=== PATIENT | female | born 1950 | race Caucasian/White ===

== ENCOUNTER → 2021-06-02 | Outpatient (CLI) | payer OTHER, MEDICARE ==
[2021-06-02 12:29] LABS: HCT 46.5 % (34.0-46.0); HGB 15.3 gm/dL (11.4-16.0); MCH 29.8 pg (25.0-35.0); MCHC 32.8 g/dL (31.0-37.0); MCV 90.7 fL (80.0-100.0); Mean Platelet Volume 7.3; Platelet Count 317 k/uL (150-450); RBC 5.13 m/uL (3.80-5.40); RDW 14.1 % (11.5-15.5); WBC 8.2 k/uL (3.8-10.6)
[2021-06-02 12:42] LABS: Albumin 4.2 g/dL (3.5-5.0); Calcium 9.8 mg/dL (8.4-10.2); Potassium 4.8 mmol/L (3.5-5.1); Total Bilirubin 0.4 mg/dL (0.2-1.3); Total Protein 7.5 g/dL (6.3-8.2)
[2021-06-02 12:44] LABS: INR 0.9 (<1.2); Partial Thromboplastin Time 23.4 sec (22.0-30.0); Prothrombin Time 10.2 sec (9.0-12.0)
[2021-06-02 13:19] LABS: Appearance,Urine Clear (Clear); Bilirubin,Urine Negative (Negative); Blood,Urine Negative (Negative); Color,Urine Light Yellow; Glucose,Urine (UA) Negative (Negative); Ketones,Urine Negative (Negative); Leukocyte Esterase,Urine Negative (Negative); Nitrite,Urine Negative (Negative); PH, Urine 7.5 (5.0-8.0); Protein,Urine Negative (Negative); Specific Gravity,Urine 1.003 (1.001-1.035); Urobilinogen,Urine <2.0 mg/dL (<2.0)
== END | disposition home or self-care (01) ==
LOC: LABPAT 11:36
PROVIDERS: ATTEND Orthopaedic Surgery
DX: Z01.812 Encounter for preprocedural laboratory examination (principal); I49.2 Junctional premature depolarization; R94.31 Abnormal electrocardiogram [ECG] [EKG]
CPT/HCPCS: 36415; 80053; 81003; 85027; 85610; 85730; 87070; 93005

== ENCOUNTER 2021-06-26 07:34 | Day surgery (SDC) | payer OTHER, MEDICARE ==
[2021-06-23 08:55] VITALS: BMI 40.6
[~2021-06-26 07:34] MED LIST: ACETAMINOPHEN TAB 500 MG TAB PO PRN; DEXAMETHASONE SOD PHOSPHATE 4 MG/ML 1 ML VIAL IV ONE; GABAPENTIN 300 MG CAP PO PRN; LIDOCAINE 1% (10MG/ML) FOR IV START INTRADERMA PRN; MELOXICAM 7.5 MG TAB PO PRN; MIDAZOLAM 2 MG/2 ML VIAL IV PRN; ONDANSETRON 4 MG/2 ML VIAL IVP ONE; ROPIVACAINE/EPI/CLONIDINE/KET 50 ML SYRINGE MISCELLANE PRN; TRANEXAMIC ACID 1,000 MG in SODIUM CHLORIDE 0.9% 100 ML IVPB PRN; fentaNYL (PF) 50 MCG/ML 2 ML AMP IVP PRN
[2021-06-26] MEDS ORDERED: ONDANSETRON 4 MG/2 ML VIAL IVP PRN (08:43)
[2021-06-26] MEDS ORDERED: bisacodyL 10 MG SUPP RECTAL PRN (08:43)
[2021-06-26] MEDS ORDERED: MAGNESIUM HYDROXIDE 2,400 MG/10 ML CUP PO PRN (08:43)
[2021-06-26] MEDS ORDERED: HYDROmorphone 0.5 MG/0.5 ML SYRINGE IVP PRN ×2 (08:43)
[2021-06-26] MEDS ORDERED: NA PHOS,M-B/NA PHOS,DI-BA 133 ML ENEMA RECTAL PRN (08:43)
[2021-06-26] MEDS ORDERED: HYDROmorphone 0.2 MG/1 ML SYRINGE IVP PRN (08:43)
[2021-06-26] MEDS ORDERED: NALOXONE 0.4 MG/ML 1 ML VIAL IV PRN (08:43)
[2021-06-26] MEDS ORDERED: HYDROcodone/APAP 7.5-325MG 1 EACH TAB PO PRN (08:45)
[2021-06-26] MEDS: LACTATED RINGERS 1,000 ML IV SCH ×2 (08:53→16:24)
[2021-06-26 09:00] LABS: Glucose,Whole Blood 115 mg/dL (75-99)
[2021-06-26] MEDS ORDERED: TRANEXAMIC ACID 1,000 MG/10 ML VIAL ONE (09:19)
[2021-06-26] MEDS ORDERED: MIDAZOLAM 2 MG/2 ML VIAL ONE (09:19)
[2021-06-26] MEDS ORDERED: PROPOFOL 10 MG/ML 20 ML VIAL IV ONE (09:19)
[2021-06-26] MEDS ORDERED: SODIUM CHLORIDE 0.9% 100 ML BAG ONE (09:19)
[2021-06-26] MEDS ORDERED: PHENYLEPHRINE-0.9% NACL SYG 1,000 MCG/10 ML SYRINGE ONE (09:19)
[2021-06-26] MEDS ORDERED: DEXAMETHASONE SOD PHOSPHATE 4 MG/ML 1 ML VIAL ONE (09:19)
[2021-06-26] MEDS ORDERED: LIDOCAINE 1% INJ 10MG/ML (20 ML MDV) ONE (09:19)
[2021-06-26] MEDS ORDERED: ROPIVACAINE 5 MG/ML 30 ML VIAL ONE (09:19)
--- NOTE | 2021-06-26 10:44 | P.OP ---
Date of Procedure: 06/26/21 Preoperative Diagnosis: Severe osteoarthritis right knee Postoperative Diagnosis: Severe osteoarthritis right knee Procedure(s) Performed: Right total knee arthroplasty Implants: Al & Nephew Journey II CR Oxinium cruciate retaining femoral component size 3, right Al & Nephew Journey nonporous tibial baseplate size 2, right Al & Nephew Journey II, XLPE Deep Dished articular insert, size 15 mm, Size 1-2, right Al & Nephew Journey Tyesha II resurfacing patellar component, oval, 29 mm All components were cemented using Palacos R bone cement The articulation is Oxinium on polyethylene Anesthesia: spinal Surgeon: Vaughn Ardon Machine Fancy Stitcher #1: Karen Abrams Estimated Blood Loss (ml): 20 Pathology: other (Bone and cartilage) Condition: stable Disposition: PACU Indications for Procedure: After failure of conservative treatment we discussed the surgical and nonsurgical treatment options at length. Patient wishes to proceed with a total knee arthroplasty. Complications specific to this procedure were discussed at length, including but not limited to infection, bleeding, stiffness, and nerve injury. Covid-19 was also discussed at length with the patient, and they are aware of the current policies and procedures. The patient was given the option of delaying surgery, but they elect to proceed knowing these risks. Patient is aware of all these complications and informed consent was obtained Operative Findings: The operative findings are consistent with severe osteoarthritis of the right knee Description of Procedure: Patient was seen in the preoperative area and the consent was reviewed and the operative site was marked with a skin marker. The patient verified the procedure and the operative site. An adductor canal pain catheter and an iPACK block was placed by anesthesia in the preoperative area. The patient was then brought to the operating room and given preoperative antibiotics intravenously. A gram of transexamic acid was given intravenously. A spinal anesthetic was administered by the anesthesia department. A tourniquet was placed on the upper thigh and the lower extremity was prepped with chlorhexidine and draped in usual sterile fashion. A universal timeout was then performed which confirmed the patient's name, surgical site, ALLERGIES, and consent. The lower extremity was then exsanguinated and tourniquet was inflated to 250 mmHg. A standard anterior midline approach to the knee was performed. The skin and subcutaneous tissue were sharply dissected down to the patellar tendon. A medial parapatellar arthrotomy was then performed. The knee was then extended, the patellar was everted, and the knee was again flexed. The infra-patellar fat pad was removed in order to enhance exposure. The anterior horns of both menisci were excised, and a release was performed to the posterior medial aspect of the knee. On gross visual inspection, there was complete loss of articular cartilage in the medial and patellofemoral joint spaces. There was also significant cartilage damage in the lateral compartment. There were multiple periarticular osteophytes globally about the knee which were then removed with a Ronguer. The femoral canal was then opened with the 9.5 mm intramedullary drill. The 8 mm intramedullary genet was then inserted into the femoral canal with the distal femoral cutting guide set for 5 of valgus. The distal femoral cutting block was then pinned in place. The intramedullary genet was then removed, and the distal femur was then cut. The cutting block was then removed and the cut was checked for symmetry. The resected bone was then measured to confirm the appropriate distal femoral resection. Next, the sizing guide was then placed and set for 3 external rotation based off of the epicondylar axis and Whitesides line. Pins were then placed and the drill holes, and the femur was sized with the sizing stylus. The pins were then removed, and the sizing guide was then removed. The spikes of the femoral block was then placed into the predrilled holes, and malleted into place. Two 45 mm pins were then placed into the fixation holes on the cutting block. An sammy wing was then used to ensure there would be no notching with the anterior cut. The anterior condyles were cut without notching. The anterior chord cut was then performed, followed by the posterior cut, posterior chamfer cut, and the anterior chamfer cut. The collateral ligaments were protected during the entire process. The cutting block was then removed. Any remaining bone and osteophytes were removed from the femur with a Rominger. The femoral canal was plugged with autologous bone. Attention was then directed to the tibia. The remaining ACL was removed with a Ronguer, and the tibia was then gently subluxed forward with a large bent knee retractor. Any remaining menisci were excised. The posterior lateral corner was cauterized in order to coagulate the lateral geniculate artery. The extra medullary tibial cutting guide was then placed, set for the appropriate rotation, slope, and depth of resection. The proximal tibia cutting guide was then pinned in place. Proximal tibia was then cut and sized. The femoral trial was placed. A narrow saw blade was then used to remove the anterior intracondylar femoral bone. The CR notch trial was then placed. The tibial trial was placed with the appropriate-sized insert. The knee was able to fully extend and flex to 130 and was stable throughout all range of motion. The knee was then extended and the patella was everted. Patella was then measured, and then using an osteotomy guide, the patella was cut at the appropriate level. The patella was then measured and drilled and the patella trial was then placed. The knee was then taken through range of motion with the patella trial and the patella tracked normally using the no thumbs technique.. The knee was then extended patella trial was then removed and the patella was everted. Knee was then flexed and lug holes were drilled through the femoral trial and the femoral trial was then removed. The tibial was then re-exposed, and the tibial broach guide was then pinned in place after it was set for the appropriate rotation to allow for the most coverage without overhang. The tibia was then reamed and broached. The cut surfaces of bone were then irrigated with pulsatile lavage. The knee was irrigated with Irrisept solution. The components were then opened, the cement was mixed, and the components were then cemented in place. The cement was allowed to harden with the knee in full extension. After the cemented hardened. The tourniquet was released, and hemostasis was obtained. A second gram of transexamic acid was given intravenously. The knee was again irrigated. The knee was again taken through range of motion and found to be stable throughout all range of motion of 0-130, and the patella tracked normally. The fascia was then closed with 0 Vicryl followed by #2 strata fix suture. The subcutaneous tissue was closed with 3-0 Vicryl and 3-0 strata fix. Exofin glue was used for the skin and placed with the knee in flexion. After the glue had dried, and Optafoam silver impregnated dressing was applied. The patient was then transferred to recovery room in stable condition. The chef assistant KADEN Akhtar was required due the complexity surgery and the need for a skilled studio assistant. She assisted in positioning, draping, retraction, and closure of the wound.
[2021-06-26] MEDS ORDERED: ROPIVACAINE 0.2%-NS ON-Q PUMP 1,090 MG, EMPTY PAIN BALL 1 EACH MISCELLANE PRN (11:11)
[2021-06-26 11:37] LABS: Glucose,Whole Blood 122 mg/dL (75-99)
[2021-06-26] MEDS ORDERED: HYDROmorphone 0.5 MG/0.5 ML SYRINGE IVP ONE ×2 (11:47→11:56)
--- NOTE | 2021-06-26 12:12 | XR ---
EXAMINATION TYPE: XR knee limited RT DATE OF EXAM: 06/26/2021 COMPARISON: NONE HISTORY: 71-year-old female evaluation for postoperative abnormality in alignment TECHNIQUE: 2 views FINDINGS: Images show placement of right total knee arthroplasty. Both distal femoral and proximal tibial compo nents of the prosthesis are well seated without periprosthetic fracture. Alignment grossly anatomic. Scattered soft tissue air with anterior soft tissue swelling as well as intra-articular air related t o recent operation. IMPRESSION: Uncomplicated postoperative appearance right total knee arthroplasty.
[2021-06-26] MEDS ORDERED: MECLIZINE 25 MG TAB PO PRN (12:35)
--- NOTE | 2021-06-26 12:43 | P.CONS ---
History of Present Illness - History of Present Illness Patient is a pleasant 71-year-old the female admitted for elective right knee arthroplasty patient subsequently underwent surgery patient is recommending a procedure. Medicine was consulted for management of hypertension. Patient is on amlodipine and then as a peripheral very high-dose. Patient blood pressure is fairly stable at this time. Patient was having some nausea denied any pain in the right knee patient pain is around 3/10 in severity patient has an adductor canal catheter for pain management. REVIEW OF SYSTEMS: CONSTITUTIONAL: No fever, no malaise, no fatigue. HEENT: No recent visual problems or hearing problems. Denied any sore throat. CARDIOVASCULAR: No chest pain, orthopnea, PND, no palpitations, no syncope. PULMONARY: No shortness of breath, no cough, no hemoptysis. GASTROINTESTINAL: No diarrhea, no vomiting, no abdominal pain. NEUROLOGICAL: No headaches, no weakness, no numbness. HEMATOLOGICAL: Denies any bleeding or petechiae. GENITOURINARY: Denies any burning micturition, frequency, or urgency. MUSCULOSKELETAL/RHEUMATOLOGICAL: Denies any joint pain, swelling, or any muscle pain. ENDOCRINE: Denies any polyuria or polydipsia. The rest of the 14-point review of systems is negative. PHYSICAL EXAMINATION: GENERAL: The patient is alert and oriented x3, not in any acute distress. Well developed, well nourished. HEENT: Pupils are round and equally reacting to light. EOMI. No scleral icterus. No conjunctival pallor. Normocephalic, atraumatic. No pharyngeal erythema. No thyromegaly. CARDIOVASCULAR: S1 and S2 present. No murmurs, rubs, or gallops. PULMONARY: Chest is clear to auscultation, no wheezing or crackles. ABDOMEN: Soft, nontender, nondistended, normoactive bowel sounds. No palpable organomegaly. MUSCULOSKELETAL: Deferred to orthopedic surgery EXTREMITIES: No cyanosis, clubbing, or pedal edema. NEUROLOGICAL: Gross neurological examination did not reveal any focal deficits. SKIN: No rashes. Assessment and plan -Right knee arthroplasty: Patient is in aspirin 325 twice a day for DVT prophylaxis. Patient pain is well controlled at this time. -Hypertension: Hold off amlodipine to prevent perioperative hypotension Down the dose of DESHAWN inhibitor. Patient can be resumed the on amlodipine once her blood pressure starts going up which I expect in 3-4 days after surgery -Type 2 diabetes mellitus patient will be started on metformin will repeat a CBC and basic metabolic profile tomorrow. If her creatinine is high metformin need to be held and patient will be started on sliding scale insulin as well DVT prophylaxis: On aspirin 325 mg twice a day Past Medical History Past Medical History: Diabetes Mellitus, Hyperlipidemia, Hypertension, Osteoarthritis (OA) History of Any Multi-Drug Resistant Organisms: None Reported Past Surgical History: Cholecystectomy Additional Past Surgical History / Comment(s): mult knee surgeries,rt elbow repair Past Anesthesia/Blood Transfusion Reactions: Postoperative Nausea & Vomiting (PONV) Additional Past Anesthesia/Blood Transfusion Reaction / Comm: no hx blood transfusion Smoking Status: Never smoker - Past Family History Mother Family Medical History: No Reported History Brother(s) Family Medical History: Cancer Sister(s) Family Medical History: Cancer Medications and Allergies Home Medications Medication Instructions Recorded Confirmed Type Acetaminophen Tab [Tylenol] 650 mg PO Q4H PRN 06/23/21 06/23/21 History Aspirin 81 mg PO DAILY 06/23/21 06/23/21 History Benazepril HCl 40 mg PO QAM 06/23/21 06/23/21 History Ibuprofen 200 mg PO Q6H PRN 06/23/21 06/23/21 History Levothyroxine Sodium [Synthroid] 112 mcg PO QAM 06/23/21 06/23/21 History Meclizine HCl 25 mg PO TID PRN 06/23/21 06/26/21 History Multivit-Min/Iron/Folic/Lutein 1 each PO DAILY 06/23/21 06/23/21 History [Centrum Silver Women Tablet] Omeprazole 20 mg PO QAM 06/23/21 06/23/21 History Simvastatin 40 mg PO DAILY 06/23/21 06/26/21 History Vit C/E/Zn/Coppr/Lutein/Zeaxan 1 each PO DAILY 06/23/21 06/23/21 History [Preservision Areds 2 Softgel] amLODIPine [Norvasc] 10 mg PO QAM 06/23/21 06/23/21 History metFORMIN HCL [Glucophage] 500 mg PO DAILY 06/23/21 06/23/21 History Aspirin 325 mg PO BID #60 tab 06/26/21 Rx HYDROcodone/APAP 7.5-325MG [[place] 1 - 2 tab PO Q6H PRN #32 tab 06/26/21 Rx 7.5-325] Ondansetron Odt [Zofran Odt] 1 tab PO Q8HR PRN #10 tab 06/26/21 Rx Sennosides [Senokot] 2 tab PO DAILY PRN #60 tablet 06/26/21 Rx Allergies Allergy/AdvReac Type Severity Reaction Status Date / Time gabapentin [From Neurontin] Allergy Unknown Verified 06/23/21 08:38 ibuprofen [From Advil] Allergy "fuzzy and Verified 06/23/21 08:38 tingling feeling" Physical Exam Vitals: Vital Signs Temp Pulse Pulse Resp BP Pulse Ox 06/26/21 12:15 94 16 142/71 93 L 06/26/21 12:02 79 16 135/76 94 L 06/26/21 11:48 80 16 131/78 88 L 06/26/21 11:30 80 16 142/79 96 06/26/21 11:15 77 16 133/75 96 06/26/21 11:08 96.9 F L 78 16 140/77 95 06/26/21 09:20 80 16 148/66 100 06/26/21 08:20 97.4 F L 87 16 172/97 98 Intake and Output 06/25/21 06/26/21 06/26/21 22:59 06:59 14:59 Intake Total 1050 Output Total 20 Balance 1030 Intake: IV 1050 Output: Estimated Blood Loss 20 Other: Weight 95 kg Results Labs: Abnormal Lab Results - Last 24 Hours (Table) 06/26/21 06/26/21 Range/Units 08:48 11:34 POC Glucose (mg/dL) 115 H 122 H (75-99) mg/dL
[2021-06-26] MEDS: SODIUM CHLORIDE 0.9% 1,000 ML IV SCH ×2 (13:51→23:02)
[2021-06-26] MEDS: HYDROcodone/APAP 7.5-325MG 1 EACH TAB PO PRN ×2 (14:15→16:22)
[2021-06-26 16:25] LABS: Glucose,Whole Blood 168 mg/dL (75-99)
[2021-06-26] MEDS: INSULIN ASPART (NovoLOG) 100 UNIT/ML VIAL SQ SCH ×2 (16:25→21:26)
[2021-06-26] MEDS ORDERED: SENNOSIDES-DOCUSATE SODIUM 1 EACH TAB PO SCH (21:00)
[2021-06-26 21:16] LABS: Glucose,Whole Blood 204 mg/dL (75-99)
[2021-06-26] MEDS: ASPIRIN 325 MG TAB PO SCH (21:26)
[2021-06-27] MEDS: HYDROcodone/APAP 7.5-325MG 1 EACH TAB PO PRN (04:38)
[2021-06-27] MEDS ORDERED: LEVOTHYROXINE 112 MCG TAB PO SCH (06:30)
[2021-06-27 07:07] LABS: Glucose,Whole Blood 117 mg/dL (75-99)
[2021-06-27] MEDS: SODIUM CHLORIDE 0.9% 1,000 ML IV SCH (07:09)
[2021-06-27] MEDS: LACTATED RINGERS 1,000 ML IV SCH (07:09)
[2021-06-27] MEDS: INSULIN ASPART (NovoLOG) 100 UNIT/ML VIAL SQ SCH ×2 (07:10→11:55)
[2021-06-27] MEDS: ASPIRIN 325 MG TAB PO SCH (07:19)
[2021-06-27] MEDS ORDERED: metFORMIN 500 MG TAB PO SCH (07:30)
[2021-06-27] MEDS ORDERED: PANTOPRAZOLE 40 MG TABLET PO SCH (07:30)
--- NOTE | 2021-06-27 07:38 | P.ANPRN ---
Procedure Note - Anesthesia - Nerve Block Performed Right Adductor Canal Infusion Time Out Performed: Yes Date of Procedure: 06/26/21 Procedure Start Time: :01 Procedure Stop Time: 09:10 Location of Patient: PreOp Indication: Acute Post-Operative Pain, Requested by Surgeon Sedation Type: Sedate with meaningful contact maintained Preparation: Sterile Prep, Sterile Dressing Position: Supine Catheter: Indwelling Needle Types: Pajunk Needle Gauge: 21 Ultrasound used to visualize needle placement: Yes Ultrasound used to observe medication spread: Yes Blood Aspirated: No Pain Paresthesia on Injection Noted: No Resistance on Injection: Normal Image Stored and Saved: Yes Events: Uneventful and Well Tolerated (Ropivacaine 0.5% 20 mL)
--- NOTE | 2021-06-27 07:40 | P.ANPRN ---
Procedure Note - Anesthesia - Nerve Block Performed Right Joeyck Single Time Out Performed: Yes Date of Procedure: 06/26/21 Procedure Start Time: :11 Procedure Stop Time: :16 Location of Patient: PreOp Indication: Acute Post-Operative Pain, Requested by Surgeon Sedation Type: Sedate with meaningful contact maintained Preparation: Sterile Prep Position: Supine Needle Gauge: 21 Ultrasound used to visualize needle placement: Yes Ultrasound used to observe medication spread: Yes Blood Aspirated: No Pain Paresthesia on Injection Noted: No Resistance on Injection: Normal Image Stored and Saved: Yes Events: Uneventful and Well Tolerated (Ropivacaine 0.5% 25 mL plus dexamethasone 4 mg)
--- NOTE | 2021-06-27 07:41 | P.PN ---
Progress Note - Text 06/27/21 722am D1-year-old female status post total knee replacement. Patient has an On-Q pump for postop pain control with the solution running at 8 mL an hour with a VAS of 5, patient is located anteriorly plan to continue On-Q pump infusion
[2021-06-27 07:50] VITALS: BP 148/88; PULSE 84; RESP 16; TEMP 97.5
--- NOTE | 2021-06-27 08:50 | P.DS ---
Providers Expected date of discharge: 06/27/21 Attending physician: Vaughn Ardon Consults: 06/26/21 08:43 Consult Physician Routine Consulting Provider: Ravindra Mcrae Consult Reason/Comments: medical management Do you want consulting provider notified?: Yes Primary care physician: Bentley Avitia - Discharge Diagnosis(es) (1) S/P total knee arthroplasty Current Visit: Yes Status: Acute (2) Osteoarthritis of right knee Current Visit: Yes Status: Acute Hospital Course: This is a 71-year-old female with known history of degenerative arthritis of the right knee. The patient presented for evaluation as an outpatient. After discussion and consideration patient elects to proceed with total knee arthroplasty. The patient is seen preoperatively by Dr. Ardon and medically cleared for surgery by their primary care physician. Patient is admitted to [facility] on 06/26/2021 for total knee arthroplasty. The procedure is performed without complication or sequelae. The patient is doing well postoperatively. Labs and vital signs are stable on day of discharge. On day of discharge patient's knee incision is healing well. There is minimal erythema. There is no drainage noted at this time. There is minimal soft tissue swelling to the knee. Patient has full foot and ankle motion without difficulty or pain. Calf is soft and nontender to palpation. Neurovascular status to the right lower extremity is intact. Patient is discharged home in good condition. Opioid start talking form is reviewed and signed. Please see med rec for accurate list of home medications. Plan - Discharge Summary Discharge Rx Participant: No New Discharge Prescriptions: New Aspirin 325 mg PO BID #60 tab Ondansetron Odt [Zofran Odt] 1 tab PO Q8HR PRN #10 tab PRN Reason: Nausea HYDROcodone/APAP 7.5-325MG [[place] 7.5-325] 1 - 2 tab PO Q6H PRN #32 tab PRN Reason: Pain Sennosides [Senokot] 2 tab PO DAILY PRN #60 tablet PRN Reason: Constipation No Action Meclizine HCl 25 mg PO TID PRN PRN Reason: Vertigo Vit C/E/Zn/Coppr/Lutein/Zeaxan [Preservision Areds 2 Softgel] 1 each PO DAILY amLODIPine [Norvasc] 10 mg PO QAM Aspirin 81 mg PO DAILY Benazepril HCl 40 mg PO QAM Levothyroxine Sodium [Synthroid] 112 mcg PO QAM metFORMIN HCL [Glucophage] 500 mg PO DAILY Multivit-Min/Iron/Folic/Lutein [Centrum Silver Women Tablet] 1 each PO DAILY Omeprazole 20 mg PO QAM Simvastatin 40 mg PO DAILY Ibuprofen 200 mg PO Q6H PRN PRN Reason: Pain Acetaminophen Tab [Tylenol] 650 mg PO Q4H PRN PRN Reason: Pain Discharge Medication List Acetaminophen Tab [Tylenol] 650 mg PO Q4H PRN 06/23/21 [History] Aspirin 81 mg PO DAILY 06/23/21 [History] Benazepril HCl 40 mg PO QAM 06/23/21 [History] Ibuprofen 200 mg PO Q6H PRN 06/23/21 [History] Levothyroxine Sodium [Synthroid] 112 mcg PO QAM 06/23/21 [History] Meclizine HCl 25 mg PO TID PRN 06/23/21 [History] Multivit-Min/Iron/Folic/Lutein [Centrum Silver Women Tablet] 1 each PO DAILY 06/23/21 [History] Omeprazole 20 mg PO QAM 06/23/21 [History] Simvastatin 40 mg PO DAILY 06/23/21 [History] Vit C/E/Zn/Coppr/Lutein/Zeaxan [Preservision Areds 2 Softgel] 1 each PO DAILY 06/23/21 [History] amLODIPine [Norvasc] 10 mg PO QAM 06/23/21 [History] metFORMIN HCL [Glucophage] 500 mg PO DAILY 06/23/21 [History] Aspirin 325 mg PO BID #60 tab 06/26/21 [Rx] HYDROcodone/APAP 7.5-325MG [[place] 7.5-325] 1 - 2 tab PO Q6H PRN #32 tab 06/26/21 [Rx] Ondansetron Odt [Zofran Odt] 1 tab PO Q8HR PRN #10 tab 06/26/21 [Rx] Sennosides [Senokot] 2 tab PO DAILY PRN #60 tablet 06/26/21 [Rx] Follow up Appointment(s)/Referral(s): Bentley Avitia MD [Primary Care Provider] - 1 Week Vaughn Ardon DO [Doctor of Osteopathic Medicine] - 07/10/21 2:00 pm (With Karen) Ambulatory/Diagnostic Orders: Continuous Passive Motion (CPM) Machine [DME.AMB1] Time Frame: 3 Weeks, Location: None Selected Activity/Diet/Wound Care/Special Instructions: Weightbearing as tolerated with a walker. CPM 5-6h daily as tolerated. Leave dressing intact. Dressing may be removed by home care nurse or by patient in 7 days. Then change dressing twice daily until follow up. May shower with initial dressing intact and after removal. If dressing become saturated, please remove. Recommend use of compression stockings daily until follow up to help prevent swelling and blood clots. May remove at night before sleeping. Please take aspirin 325mg twice daily for 30 days to prevent blood clots. Please follow up with [facility] and call with any questions or concerns, . Discharge Disposition: HOME WITH HOME HEALTH SERVICES
[2021-06-27] MEDS ORDERED: lisinopriL 20 MG TAB PO SCH (09:00)
[2021-06-27] MEDS ORDERED: ATORVASTATIN 20 MG TAB PO SCH (09:00)
[2021-06-27 10:57] LABS: Basophils # (A) 0.01 X 10*3/uL (0.00-0.10); Basophils % (A) 0.1 %; Eosinophils # (A) 0 X 10*3/uL (0.04-0.35); Eosinophils % (A) 0 %; HCT 40.1 % (37.2-46.3); HGB 12.8 g/dL (12.0-15.0); Lymphocytes # (A) 1.67 X 10*3/uL (0.90-5.00); Lymphocytes % (A) 15.8 %; MCH 28.9 pg (27.0-32.0); MCHC 31.9 g/dL (32.0-37.0); MCV 90.5 fL (80.0-97.0); Mean Platelet Volume 10.7 fL (9.5-12.2); Monocytes # (A) 1.04 X 10*3/uL (0.20-1.00); Monocytes % (A) 9.8 %; Neutrophils # (A) 7.82 X 10*3/uL (1.80-7.70); Neutrophils % (A) 73.7 %; Platelet Count 255 X 10*3/uL (140-440); RBC 4.43 X 10*6/uL (4.10-5.20); RDW 14.7 % (11.5-14.5)
[2021-06-27 11:40] LABS: Glucose,Whole Blood 104 mg/dL (75-99)
[2021-06-27 11:57] LABS: African American GFR (CKD) 73.5 (60.0-200.0); Anion Gap 12.4 mmol/L (4.00-12.00); BUN/Creat Ratio 13.33 Ratio (12.00-20.00); Calcium 8.8 mg/dL (8.7-10.3); Carbon Dioxide 21.6 mmol/L (21.6-31.8); Non-African American GFR(CKD) 63.4 (60.0-200.0); Potassium 4.6 mmol/L (3.5-5.5)
[2021-06-27] MEDS ORDERED: amLODIPine 10 MG TAB PO SCH (12:15)
--- NOTE | 2021-06-27 17:56 | PN ---
PROGRESS NOTE DATE OF SERVICE: June 27, 2021. PRESENTING COMPLAINT: Right knee surgery. INTERVAL HISTORY: Patient underwent right total knee arthroplasty yesterday. Some pain with activity. No nausea, vomiting. Did tolerate her breakfast this morning. Did work with physical therapy. REVIEW OF SYSTEMS: Was done for constitutional, cardiovascular, GI, pulmonary, orthopedic, findings as above. CURRENT MEDICATIONS: Reviewed into his electronic records. PHYSICAL EXAMINATION: On examination, temperature 97.5 pulse 84, respiration 16, blood pressure 148/88, pulse ox 95% on room air. General appearance: BMI 40.9, reclining in bed, awake, comfortable. Eyes: Pupils equal, conjunctivae normal. Respiratory effort normal. Lungs fair entry. Cardiovascular: First and second sounds. No edema. Abdomen soft, nontender, liver, spleen not palpable, no mass palpable. Psychiatry: Alert, oriented x3. Mood and affect normal. Extremities: Evidence of OA. Dressing over the right knee. INVESTIGATIONS: White count 10.6, hemoglobin 12.8, potassium 4.6, creatinine 0.9. Accu-Cheks 104. ASSESSMENT AND PLAN: 1. Right total knee arthroplasty. We will continue with aspirin 325 twice a day as per Orthopedics. 2. Hyperlipidemia. Continue with simvastatin 40 mg daily. 3. Diabetes mellitus type 2, on oral hypoglycemic. Continue with Glucophage 500 mg daily. Follow Accu-Cheks. 4. Hypothyroid. Continue with Synthroid 112 mcg daily. 5. Essential hypertension. Benazepril 40 mg daily. Norvasc 10 mg daily. 6. Morbid obesity BMI 40.9. Weight loss measures. Follow up with PCP. Care was discussed with the patient. Questions answered. Home medications continued. Pain medications and aspirin as per Orthopedics. Patient should follow up with Dr. Avitia upon discharge. Thank you Dr. Ardon. MMODL / IJN: [id number] /
== END 2021-06-27 14:03 | disposition home health service (06) ==
LOC: OR 07:34 → 4SSUR 12:09 → OR 06-27 14:03
PROVIDERS: ATTEND Orthopaedic Surgery
DX: M17.11 Unilateral primary osteoarthritis, right knee (principal); E03.9 Hypothyroidism, unspecified; E78.5 Hyperlipidemia, unspecified; I10 Essential (primary) hypertension; E11.9 Type 2 diabetes mellitus without complications; Z79.4 Long term (current) use of insulin; E66.01 Morbid (severe) obesity due to excess calories; Z68.41 Body mass index [BMI] 40.0-44.9, adult; Z79.82 Long term (current) use of aspirin; Z79.899 Other long term (current) drug therapy; Z88.6 Allergy status to analgesic agent; Z88.8 Allergy status to other drugs, medicaments and biological substances; Z90.49 Acquired absence of other specified parts of digestive tract; Z79.890 Hormone replacement therapy; K21.9 Gastro-esophageal reflux disease without esophagitis
CPT/HCPCS: 27447; 97161; 64999; 64448; 76942; 80048; 85025; 88300; 73560; C1713; C1776; J2250; J1100; J0690; J2405; J2001; J2795 ×2; J2370; J2704; J1170

== ENCOUNTER → 2023-04-24 | Outpatient (CLI) | payer OTHER, MEDICARE ==
[2023-04-24 13:54] LABS: Partial Thromboplastin Time 24.2 sec (22.0-30.0); Prothrombin Time 10.4 sec (9.0-12.0)
[2023-04-24 19:45] LABS: ALT 19 U/L (8-44); AST 22 U/L (13-35); Albumin 4.1 d/dL (3.8-4.9); Albumin/Globulin Ratio 1.32 Ratio (1.60-3.17); Alkaline Phosphatase 126 U/L (41-126); Blood Urea Nitrogen 18.2 mg/dL (9.0-27.0); Calcium 9.7 mg/dL (8.7-10.3); Carbon Dioxide 27.2 mmol/L (21.6-31.8); Chloride 101 mmol/L (96-109); Globulin 3.1 d/dL (1.6-3.3); Glucose 122 mg/dL (70-110); Potassium 4.8 mmol/L (3.5-5.5); Sodium 141 mmol/L (135-145); Total Bilirubin 0.5 mg/dL (0.3-1.2); Total Protein 7.2 d/dL (6.2-8.2)
[2023-04-24 21:23] LABS: Appearance,Urine Clear (Clear); Bilirubin,Urine Small (Negative); Blood,Urine Negative (Negative); Color,Urine Dark Yellow (Yellow); Ketones,Urine Trace (Negative); Nitrite,Urine Negative (Negative); Specific Gravity,Urine 1.022 (1.001-1.030)
[2023-04-24 21:29] LABS: Bacteria,Urine 2+ (None Seen)
[2023-04-25 00:29] LABS: HCT 46.1 % (37.2-46.3); HGB 14.6 d/dL (12.0-15.0); MCH 29.1 pg (27.0-32.0); MCHC 31.7 d/dL (32.0-37.0); Mean Platelet Volume 10.4 FL (9.5-12.2); NRBC Per 100 WBC 0 X 10*3/uL (0.00-0.01); Platelet Count 304 X 10*3/uL (140-440); RBC 5.01 X 10*6/uL (4.10-5.20); RDW 14.5 % (11.5-14.5); WBC 7.66 X 10*3/uL (4.50-10.00)
== END | disposition home or self-care (01) ==
LOC: LABPAT 11:49
PROVIDERS: ATTEND Orthopaedic Surgery
DX: Z01.818 Encounter for other preprocedural examination (principal); I47.1 Supraventricular tachycardia; M17.12 Unilateral primary osteoarthritis, left knee
CPT/HCPCS: 36415; 80053; 81001; 85027; 85610; 85730; 87070; 93005

== ENCOUNTER → 2023-09-18 | Outpatient (CLI) | payer OTHER, MEDICARE ==
[2023-09-18 14:14] LABS: Partial Thromboplastin Time 25.4 sec (22.0-30.0)
[2023-09-18 19:53] LABS: HCT 44.8 % (37.2-46.3); HGB 14.6 g/dL (12.0-15.0); MCH 29.3 pg (27.0-32.0); MCHC 32.6 g/dL (32.0-37.0); MCV 89.8 FL (80.0-97.0); Mean Platelet Volume 10.7 FL (9.5-12.2); NRBC Per 100 WBC 0 X 10*3/uL (0.00-0.01); Platelet Count 270 X 10*3/uL (140-440); RBC 4.99 X 10*6/uL (4.10-5.20); RDW 14.7 % (11.5-14.5); WBC 7.34 X 10*3/uL (4.50-10.00)
[2023-09-19 01:59] LABS: Appearance,Urine Clear (Clear); Bilirubin,Urine Negative (Negative); Blood,Urine Negative (Negative); Color,Urine Yellow (Yellow); Ketones,Urine Negative (Negative); Nitrite,Urine Negative (Negative); Specific Gravity,Urine 1.007 (1.001-1.030); Urobilinogen,Urine 0.2 E.U./DL
[2023-09-19 02:11] LABS: Bacteria,Urine None Seen (None Seen)
[2023-09-19 02:32] LABS: ALT 16 U/L (8-44); AST 19 U/L (13-35); Albumin 4.1 g/dL (3.8-4.9); Albumin/Globulin Ratio 1.37 Ratio (1.60-3.17); Alkaline Phosphatase 113 U/L (41-126); Blood Urea Nitrogen 14.3 mg/dL (9.0-27.0); Calcium 9.6 mg/dL (8.7-10.3); Carbon Dioxide 24.6 mmol/L (21.6-31.8); Chloride 100 mmol/L (96-109); Glucose 111 mg/dL (70-110); Potassium 4.4 mmol/L (3.5-5.5); Sodium 137 mmol/L (135-145); Total Bilirubin 0.5 mg/dL (0.3-1.2); Total Protein 7.1 g/dL (6.2-8.2)
== END | disposition home or self-care (01) ==
LOC: LABPAT 11:44
PROVIDERS: ATTEND Orthopaedic Surgery
DX: Z01.818 Encounter for other preprocedural examination (principal); M17.12 Unilateral primary osteoarthritis, left knee; I49.1 Atrial premature depolarization
CPT/HCPCS: 80053; 81001; 85027; 85610; 85730; 87070

== ENCOUNTER → 2023-11-20 | Outpatient (CLI) | payer OTHER, MEDICARE ==
[2023-11-20 16:25] LABS: Partial Thromboplastin Time 25.1 sec (22.0-30.0); Prothrombin Time 10.8 sec (10.0-12.5)
[2023-11-20 18:24] LABS: HCT 44.1 % (37.2-46.3); HGB 14.9 g/dL (12.0-15.0); MCH 29.7 pg (27.0-32.0); MCHC 33.8 g/dL (32.0-37.0); MCV 87.8 FL (80.0-97.0); Mean Platelet Volume 10.3 FL (9.5-12.2); NRBC Per 100 WBC 0 X 10*3/uL (0.00-0.01); Platelet Count 304 X 10*3/uL (140-440); RBC 5.02 X 10*6/uL (4.10-5.20); RDW 15.2 % (11.5-14.5); WBC 7.13 X 10*3/uL (4.50-10.00)
[2023-11-20 18:32] LABS: ALT 21 U/L (8-44); AST 25 U/L (13-35); Albumin 4.1 g/dL (3.8-4.9); Albumin/Globulin Ratio 1.24 Ratio (1.60-3.17); Alkaline Phosphatase 116 U/L (41-126); BUN/Creat Ratio 12.82 Ratio (12.00-20.00); Blood Urea Nitrogen 14.1 mg/dL (9.0-27.0); Calcium 10.2 mg/dL (8.7-10.3); Carbon Dioxide 23.5 mmol/L (21.6-31.8); Chloride 101 mmol/L (96-109); Globulin 3.3 g/dL (1.6-3.3); Glucose 134 mg/dL (70-110); Potassium 5.1 mmol/L (3.5-5.5); Sodium 140 mmol/L (135-145); Total Bilirubin 0.6 mg/dL (0.3-1.2); Total Protein 7.4 g/dL (6.2-8.2)
[2023-11-20 21:01] LABS: Appearance,Urine Cloudy (Clear); Bilirubin,Urine Small (Negative); Blood,Urine Negative (Negative); Color,Urine Dark Yellow (Yellow); Ketones,Urine Trace (Negative); Nitrite,Urine Negative (Negative); PH, Urine 6.5; Specific Gravity,Urine 1.021 (1.001-1.030)
[2023-11-20 21:41] LABS: Bacteria,Urine 3+ (None Seen)
== END | disposition home or self-care (01) ==
LOC: LABPAT 14:43
PROVIDERS: ATTEND Orthopaedic Surgery
DX: Z01.812 Encounter for preprocedural laboratory examination (principal); M17.12 Unilateral primary osteoarthritis, left knee
CPT/HCPCS: 36415; 80053; 81001; 85027; 85610; 85730; 87070

== ENCOUNTER 2023-12-03 06:51 | Day surgery (SDC) | payer OTHER, MEDICARE ==
[2023-11-26 11:51] VITALS: BMI 43.0
[~2023-12-03 06:51] MED LIST changes: -DEXAMETHASONE SOD PHOSPHATE 4 MG/ML 1 ML VIAL IV ONE; -GABAPENTIN 300 MG CAP PO PRN; -LIDOCAINE 1% (10MG/ML) FOR IV START INTRADERMA PRN; -MIDAZOLAM 2 MG/2 ML VIAL IV PRN; -ONDANSETRON 4 MG/2 ML VIAL IVP ONE; -ROPIVACAINE/EPI/CLONIDINE/KET 50 ML SYRINGE MISCELLANE PRN; +TRANEXAMIC 1,000 MG/100ML-NACL 1,000 MG in SALINE 1 100ML.BAG IVPB PRN; -TRANEXAMIC ACID 1,000 MG in SODIUM CHLORIDE 0.9% 100 ML IVPB PRN; -fentaNYL (PF) 50 MCG/ML 2 ML AMP IVP PRN
[2023-12-03] MEDS ORDERED: LIDOCAINE 1% (10MG/ML) FOR IV START INTRADERMA PRN (07:18)
[2023-12-03] MEDS ORDERED: MIDAZOLAM 2 MG/2 ML VIAL IV PRN (07:18)
[2023-12-03] MEDS ORDERED: HYDROmorphone 0.5 MG/0.5 ML SYRINGE IVP PRN ×4 (07:18→09:03)
[2023-12-03] MEDS ORDERED: fentaNYL (PF) 50 MCG/ML 2 ML AMP IVP PRN (07:18)
[2023-12-03] MEDS ORDERED: ONDANSETRON 4 MG/2 ML VIAL IVP ONE (07:18)
[2023-12-03] MEDS ORDERED: METOCLOPRAMIDE 5 MG/ML 2 ML VIAL IVP PRN (07:18)
[2023-12-03] MEDS ORDERED: DEXAMETHASONE SOD PHOSPHATE 4 MG/ML 1 ML VIAL IV ONE (07:18)
[2023-12-03] MEDS: LACTATED RINGERS 1,000 ML IV SCH (08:00)
[2023-12-03 08:03] LABS: Glucose,Whole Blood 141 mg/dL (70-110)
[2023-12-03] MEDS ORDERED: MIDAZOLAM 2 MG/2 ML VIAL IVP ONE (08:26)
--- NOTE | 2023-12-03 08:56 | P.ANPRN ---
Procedure Note - Anesthesia - Nerve Block Performed Left Fraknlin Single Time Out Performed: Yes Date of Procedure: 12/03/23 Procedure Start Time: : Procedure Stop Time: :32 Location of Patient: PreOp Indication: Acute Post-Operative Pain, Analgesia, Requested by Surgeon Sedation Type: Sedate with meaningful contact maintained Preparation: Sterile Prep Position: Right Lateral Needle Types: Pajunk Needle Gauge: 21 Ultrasound used to visualize needle placement: Yes Ultrasound used to observe medication spread: Yes Injectate: 0.5% Ropivacaine (see comment for volume) (Ropiv 15ml+NS 10ml) Blood Aspirated: No Pain Paresthesia on Injection Noted: No Resistance on Injection: Normal Image Stored and Saved: Yes Events: Uneventful and Well Tolerated
[2023-12-03] MEDS ORDERED: ROPIVACAINE 0.75% 1,100 MG, SODIUM CHLORIDE 0.9% 500 ML 403 ML, EMPTY PAIN BALL 1 EACH MISCELLANE PRN ×2 (08:58)
--- NOTE | 2023-12-03 08:58 | P.ANPRN ---
Procedure Note - Anesthesia - Nerve Block Performed Left Adductor Canal Infusion Time Out Performed: Yes Date of Procedure: 12/03/23 Procedure Start Time: 08:33 Procedure Stop Time: 08:40 Location of Patient: PreOp Indication: Acute Post-Operative Pain, Analgesia, Requested by Surgeon Sedation Type: Sedate with meaningful contact maintained Preparation: Sterile Prep Position: Supine Catheter: Indwelling Needle Types: On-Q Needle Gauge: 21 Ultrasound used to visualize needle placement: Yes Ultrasound used to observe medication spread: Yes Injectate: 0.5% Ropivacaine (see comment for volume) (Ropiv 10ml+NS 5ml) Blood Aspirated: No Pain Paresthesia on Injection Noted: No Resistance on Injection: Normal Image Stored and Saved: Yes Events: Uneventful and Well Tolerated
[2023-12-03] MEDS ORDERED: NA PHOS,M-B/NA PHOS,DI-BA 133 ML ENEMA RECTAL PRN (09:03)
[2023-12-03] MEDS ORDERED: MAGNESIUM HYDROXIDE 2,400 MG/30 ML CUP PO PRN (09:03)
[2023-12-03] MEDS ORDERED: NALOXONE 0.4 MG/ML 1 ML VIAL IV PRN (09:03)
[2023-12-03] MEDS ORDERED: bisacodyL 10 MG SUPP RECTAL PRN (09:03)
[2023-12-03] MEDS ORDERED: ONDANSETRON 4 MG/2 ML VIAL IVP PRN (09:03)
[2023-12-03] MEDS ORDERED: HYDROcodone/APAP 7.5-325MG 1 EACH TAB PO PRN (09:06)
[2023-12-03] MEDS ORDERED: MIDAZOLAM 2 MG/2 ML VIAL ONE (09:14)
[2023-12-03] MEDS ORDERED: SODIUM CHLORIDE 0.9% (PF) 10 ML VIAL ONE (09:14)
[2023-12-03] MEDS ORDERED: fentaNYL (PF) 50 MCG/ML 2 ML AMP ONE (09:14)
[2023-12-03] MEDS ORDERED: TRANEXAMIC 1,000 MG/100ML-NACL PREMIX BAG ONE (09:14)
[2023-12-03] MEDS ORDERED: ROPIVACAINE 5 MG/ML 30 ML VIAL ONE (09:14)
[2023-12-03] MEDS ORDERED: ceFAZolin 1,000 MG in SODIUM CHLORIDE 0.9% 1,000 ML IRRIGATION ONE (09:17)
[2023-12-03] MEDS ORDERED: LACTATED RINGERS 1,000 ML IV ONE (10:17)
--- NOTE | 2023-12-03 10:31 | P.OP ---
Date of Procedure: 12/03/23 Preoperative Diagnosis: Severe osteoarthritis left knee Postoperative Diagnosis: Severe osteoarthritis left knee Procedure(s) Performed: Left total knee arthroplasty Implants: Al & Nephew Journey II CR Oxinium cruciate retaining femoral component size 3, left Al [employer] Nephew Journey nonporous tibial baseplate size 2, left Al [employer] Nephew Journey II, XLPE Deep Dished articular insert, size 10 mm, Size 1-2, left Al [employer] Nephew Journey Tyesha II resurfacing patellar component, oval, 29 mm All components were cemented using Palacos R bone cement The articulation is Oxinium on polyethylene Anesthesia: spinal Surgeon: Vaughn Ardon Assembly Leader #1: Karen Abrams Estimated Blood Loss (ml): 30 Pathology: none sent Condition: stable Disposition: PACU Indications for Procedure: The patient's knee is end-stage, and conservative management has failed. The operation of knee replacement has been discussed at length in the office, as well as potential risks and complications. These are inclusive of, but not limited to: Infection, bleeding, scarring, discomfort, stiffness, blood vessel and nerve damage, need for further surgery, failure to relieve symptoms, persistence, recurrence, or worsening of problems, loosening, dislocation, wear, blood clot, pulmonary embolism, , gait dysfunction, stiffness, and other risks as discussed in the office. Patient elects to proceed and the consent form has been signed. Operative Findings: Operative findings are consistent with severe osteoarthritis of the left knee Description of Procedure: The patient was seen in the preoperative area, the consent was reviewed and the operative site was marked with a skin marker. The patient verified the procedure and the operative site. An adductor canal pain catheter and an iPACK block were placed by anesthesia in the preoperative area. The patient was then brought to the operating room and positioned on the operating room table in the supine position. Preoperative antibiotics and a gram of tranexamic acid were given intravenously. A spinal anesthetic was administered by the anesthesia department. Care was taken to make sure that all pressure points were adequately padded. A tourniquet was placed on the upper thigh and the lower extremity was prepped with ChloraPrep and draped in usual sterile fashion. A universal time-out was then performed which confirmed the patient's name, surgical site, ALLERGIES, and consent. The lower extremity was then exsanguinated and tourniquet was inflated to 250 mmHg. A standard anterior midline approach to the knee was performed. The skin and subcutaneous tissue were sharply dissected down to the patellar tendon. A medial parapatellar arthrotomy was then performed. The knee was then extended, the patellar was everted, and the knee was flexed. The infra-patellar fat pad was removed in order to enhance exposure. The anterior horns of both menisci were excised, and a release was performed to the posterior medial aspect of the knee. On gross visual inspection, there was complete loss of articular cartilage in the medial and patellofemoral joint spaces. There was also significant cartilage damage in the lateral compartment. There were multiple periarticular osteophytes globally about the knee which were then removed with a Ronguer. The femoral canal was then opened with the 9.5 mm intramedullary drill. The 8 mm intramedullary genet was then inserted into the femoral canal with the distal femoral cutting guide set for 5 of valgus. The distal femoral cutting block was then pinned in place. The intramedullary genet was then removed, and the distal femur was then cut. The cutting block was then removed and the cut was checked for symmetry. The resected bone was then measured to co nfirm the appropriate distal femoral resection. Next, the sizing guide was then placed and set for 3 external rotation based off of the epicondylar axis and Brokaw's line. Pins were then placed and the drill holes, and the femur was sized with the sizing stylus. The pins were then removed, and the sizing guide was then removed. The spikes of the appropriate size femoral block was then placed into the predrilled holes, and malleted into place. Two 45 mm pins were then placed into the fixation holes on the cutting block. An sammy wing was then used to ensure there would be no notching with the anterior cut. The anterior condyles were cut without notching. The anterior chord cut was then performed, followed by the posterior cut, posterior chamfer cut, and the anterior chamfer cut. The collateral ligaments were protected during the entire process. The cutting block was then removed. Any remaining bone and osteophytes were removed from the femur with a Ronguer. Attention was then directed to the tibia. The remaining ACL was removed with a Ronguer, and the tibia was then gently subluxed forward with a large bent knee retractor. Any remaining menisci were excised. The posterior lateral corner was cauterized in order to coagulate the lateral geniculate artery. The extra medullary tibial cutting guide was then placed, set for the appropriate rotation, slope, and depth of resection. The proximal tibia cutting guide was then pinned in place. Proximal tibia was then cut and sized. A curved osteotome was then used to remove any posterior osteophytes from the distal femur. The femoral trial was placed. A narrow saw blade was then used to remove the anterior intracondylar femoral bone. The CR notch trial was then placed. The tibial trial was placed with the appropriate-sized insert. The knee was able to fully extend and flex to 130 and was stable throughout all range of motion. The knee was then extended and the patella was everted. Patella was then measured, and then using an osteotomy guide, the patella was cut at the appropriate level. The patellar component was sized. The patellar drill guide was placed and the patella was drilled. The patella trial was then placed. The knee was then taken through range of motion with the patella trial and the patella tracked normally using the no thumbs technique. The patella trial was then removed. The knee was then flexed and lug holes were drilled through the femoral trial and the femoral trial was then removed. The tibial was then re- exposed, and the tibial broach guide was then pinned in place after it was set for the appropriate rotation to allow for the most coverage without overhang. The tibia was then reamed and broached. The femoral canal was plugged with autologous bone. The cut surfaces of bone were then irrigated with pulsatile lavage. The knee was also irrigated with Irrisept solution. The components were then opened, the cement was mixed. Cement was placed on the backside of the femoral, tibial, and patellar components. Cement was then applied to the tibial surface and pressurized into the surface using finger pressurization technique. The tibial component was then applied and excess cement was removed after it was impacted securely noted to be flush with the cut surface. In similar fashion, the cement was applied to the cut femoral surface, pressurized and using finger pressurization the component was impacted in place. Excess cement was removed. The polyethylene spacer was then implanted and locked into position. Patellar component was then applied in a similar technique and the patellar clamp was used to hold patella in place while the cement hardened. The knee was held in full extension while the cement hardened. Once the cement had fully hardened, the knee was reinspected. Any other cement extrusion was removed the final range of motion testing showed range of motion from 0-130 with excellent stability, both medial and laterally and appropriate alignment of the leg. Patella tracked normally. After the cemented hardened, the tourniquet was released and hemostasis was obtained. A second gram of transexamic acid was given intravenously. The knee was again irrigated. The knee was again taken through range of motion and found to be stable throughout all range of motion of 0-130, and the patella tracked normally. The fascia was then closed with 0 Vicryl followed by #2 strata fix suture. The subcutaneous tissue was closed with 3-0 Vicryl and 3-0 strata fix. Exofin glue was used for the skin and placed with the knee in flexion. After the glue had dried, and Optafoam silver impregnated dressing was applied. A lightly compressive dressing was applied using web roll and Carlos wrap. Patient was then transferred to the stretcher and taken to recovery room in stable condition. Sponge and needle counts were correct. The licensed physical therapy assistant KADEN Akhtar was required due the complexity surgery and the need for a skilled surgical assist. She assisted in positioning, draping, retraction, and closure of the wound.
[2023-12-03] MEDS: HYDROmorphone 0.5 MG/0.5 ML SYRINGE IVP ONE ×2 (11:23→11:57)
--- NOTE | 2023-12-03 12:12 | XR ---
EXAMINATION TYPE: XR knee limited LT DATE OF EXAM: 12/03/2023 11:55 AM CLINICAL INDICATION:Female, 73 years old with history of Evaluation for Postop abnormality and alignm ent; [facility] COMPARISON: None. TECHNIQUE: XR knee limited LT; examined in Frontal, lateral and oblique projections. FINDINGS: Status post total knee arthroplasty changes with hardware in appropriate alignment and in tact. No evidence of fracture. Subcutaneous lucencies and lucencies within the joint consistent with surgical changes. IMPRESSION: Status post total knee arthroplasty changes with hardware intact and appropriate alignment. No fractu res identified.
[2023-12-03] MEDS ORDERED: DEXTROSE 50% SYRINGE 50 ML IVP PRN ×2 (14:37)
--- NOTE | 2023-12-03 14:41 | P.CONS ---
History of Present Illness - Reason for Consult Consult date: 12/03/23 - Chief Complaint Medical management - History of Present Illness HPI Patient is a 73-year-old female with a past medical history of diabetes mellitus type 2, hyperlipidemia, hypothyroidism, hypertension, GERD who came in for elective left total knee replacement. Patient was seen after the surgery. She is currently complaining of 4 out of 10 pain. She otherwise has no acute complaints. Patient states that she had a recent stress test done that was normal. Review of systems: 10 ROS reviewed and are negative except as noted in HPI Physical exam General: [Alert and oriented, well nourished, no acute distress, appears chronically debilitated]. Eye: [PERRL, EOMI, normal conjunctiva]. HENT: [Normocephalic, clear tympanic membranes, normal hearing, moist oral mucosa, no scleral icterus, no sinus tenderness]. Neck: [Supple, non-tender, no carotid bruits, no JVD, no lymphadenopathy]. Lungs: [Clear to auscultation and percussion, non-labored respiration]. Heart: [Normal rate, regular rhythm, no murmur, gallop or edema]. Abdomen: [Soft, non-tender, non-distended, normal bowel sounds, no masses] obese. Musculoskeletal: [Restricted range of motion of the left lower extremity, left lower extremity bandages intact and dry, no tenderness or swelling]. Skin: [Skin is warm, dry and pink, no rashes or lesions]. Neurologic: [Awake, alert, and oriented X3, CN II-XII intact]. Psychiatric: [Cooperative, appropriate mood and affect]. Assessment and plan Hypertension Will hold off on patient's blood pressure meds for now after surgery Continue to monitor blood pressure On discharge patient can resume her home BP meds Diabetes mellitus Hold metformin Sliding scale insulin Left TKA Patient started on aspirin 325 mg p.o. twice daily As per your orthopedic surgery management Hypothyroidism Resume levothyroxine GERD Resume PPI DVT prophylaxis: Patient on aspirin twice daily medical management postop postop medical management Past Medical History Past Medical History: Diabetes Mellitus, GERD/Reflux, Hyperlipidemia, Hypertension, Osteoarthritis (OA), Thyroid Disorder Additional Past Medical History / Comment(s): SOB for last "few months", had Heart Cath [facility] and cleared for surgery, states her SOB could be from her difficulty walking w/ knee pain. History of Any Multi-Drug Resistant Organisms: None Reported Past Surgical History: Cholecystectomy, Heart Catheterization, Joint Replacement Additional Past Surgical History / Comment(s): Elbow surgery, right knee replacement. Past Anesthesia/Blood Transfusion Reactions: Postoperative Nausea & Vomiting (PONV) Past Psychological History: No Psychological Hx Reported Smoking Status: Never smoker Past Alcohol Use History: Rare Past Drug Use History: None Reported - Past Family History Father Family Medical History: Cancer, Coronary Artery Disease (CAD) Mother Family Medical History: Cancer, Coronary Artery Disease (CAD) Sister(s) Family Medical History: Cancer Additional Family Medical History / Comment(s): Breast cancer. Medications and Allergies Home Medications Medication Instructions Recorded Confirmed Type Acetaminophen Tab [Tylenol] 650 mg PO Q4H PRN 06/23/21 11/26/23 History Aspirin 81 mg PO DAILY 06/23/21 11/26/23 History Benazepril HCl 40 mg PO QAM 06/23/21 11/26/23 History Multivit-Min/Iron/Folic/Lutein 1 each PO DAILY 06/23/21 11/26/23 History [Centrum Silver Women Tablet] Omeprazole 20 mg PO QAM 06/23/21 11/26/23 History Simvastatin 40 mg PO QAM 06/23/21 11/26/23 History Vit C/E/Zn/Coppr/Lutein/Zeaxan 1 each PO DAILY 06/23/21 11/26/23 History [Preservision Areds 2 Softgel] amLODIPine [Norvasc] 10 mg PO QAM 06/23/21 11/26/23 History metFORMIN HCL [Glucophage] 500 mg PO QAM 06/23/21 11/26/23 History Ibuprofen [Motrin Ib] 400 mg PO Q8H PRN 09/26/23 11/26/23 History Levothyroxine Sodium 125 mcg PO QAM 09/26/23 11/26/23 History Magnesium 400 mg PO DAILY 09/26/23 11/26/23 History Aspirin 325 mg PO BID #60 tab 12/03/23 Rx HYDROcodone/APAP 7.5-325MG [[place] 1 - 2 tab PO Q6H PRN #32 tab 12/03/23 Rx 7.5-325] Sennosides [Senokot] 2 tab PO DAILY PRN #60 tablet 12/03/23 Rx Allergies Allergy/AdvReac Type Severity Reaction Status Date / Time gabapentin [From Neurontin] Allergy Unknown Verified 12/03/23 07:31 ibuprofen [From Advil] Allergy "fuzzy and Verified 12/03/23 07:31 tingling feeling" Physical Exam Osteopathic Statement: *. No significant issues noted on an osteopathic structural exam other than those noted in the History and Physical/Consult. Vitals: Vital Signs Temp Pulse Pulse Resp BP Pulse Ox 12/03/23 14:26 92 119/78 93 L 12/03/23 14:00 89 135/74 94 L 12/03/23 13:00 98 16 124/67 95 12/03/23 12:30 99 16 123/60 95 12/03/23 12:04 97 16 124/62 95 12/03/23 11:45 95 16 127/75 95 12/03/23 11:30 96 16 136/65 95 12/03/23 11:15 89 16 134/71 95 12/03/23 11:00 89 16 133/78 95 12/03/23 10:56 98 F 89 16 124/74 92 L 12/03/23 08:31 77 16 125/78 98 12/03/23 07:38 96.7 F L 90 16 124/58 96 Intake and Output 12/02/23 12/03/23 12/03/23 22:59 06:59 14:59 Intake Total 1551 Output Total 30 Balance 1521 Intake: IV 1551 Output: Estimated Blood Loss 30 Other: Weight 98.6 kg Results Labs: Abnormal Lab Results - Last 24 Hours (Table) 12/03/23 Range/Units 07:51 POC Glucose (mg/dL) 141 H (70-110) mg/dL
[2023-12-03] MEDS: HYDROcodone/APAP 7.5-325MG 1 EACH TAB PO PRN (15:24)
[2023-12-03] MEDS: SODIUM CHLORIDE 0.9% 1,000 ML IV SCH (15:24)
[2023-12-03 16:26] LABS: Glucose,Whole Blood 183 mg/dL (70-110)
[2023-12-03] MEDS: INSULIN ASPART (NovoLOG) 100 UNIT/ML VIAL SQ SCH ×2 (17:04→20:28)
[2023-12-03] MEDS: ASPIRIN 325 MG TAB PO SCH (20:29)
[2023-12-03 20:30] LABS: Glucose,Whole Blood 269 mg/dL (70-110)
[2023-12-03] MEDS ORDERED: SENNOSIDES-DOCUSATE SODIUM 1 EACH TAB PO SCH (21:00)
[2023-12-04] MEDS: HYDROcodone/APAP 7.5-325MG 1 EACH TAB PO PRN ×2 (00:39→06:18)
[2023-12-04] MEDS: SODIUM CHLORIDE 0.9% 1,000 ML IV SCH ×2 (00:47→01:11)
[2023-12-04] MEDS: LACTATED RINGERS 1,000 ML IV SCH (01:10)
[2023-12-04 05:55] LABS: Glucose,Whole Blood 116 mg/dL (70-110)
[2023-12-04] MEDS: INSULIN ASPART (NovoLOG) 100 UNIT/ML VIAL SQ SCH ×2 (05:55→12:00)
[2023-12-04] MEDS ORDERED: LEVOTHYROXINE 125 MCG TAB PO SCH (06:30)
[2023-12-04] MEDS: ASPIRIN 325 MG TAB PO SCH (08:37)
[2023-12-04] MEDS ORDERED: ATORVASTATIN 20 MG TAB PO SCH (09:00)
[2023-12-04] MEDS ORDERED: PANTOPRAZOLE 40 MG TABLET PO SCH (09:00)
[2023-12-04] MEDS ORDERED: amLODIPine 10 MG TAB PO SCH (10:15)
[2023-12-04] MEDS ORDERED: lisinopriL 20 MG TAB PO SCH (10:15)
--- NOTE | 2023-12-04 10:20 | P.DS ---
Providers Expected date of discharge: 12/04/23 Attending physician: Vaughn Ardon Consults: 12/03/23 09:03 Consult Physician Routine Consulting Provider: Ursula Melgar Consult Reason/Comments: medical management Do you want consulting provider notified?: Yes Primary care physician: Stated None Hospital Course: This is a 73-year-old female with known history of degenerative arthritis of the left knee. The patient presented for evaluation as an outpatient. After discussion and consideration patient elects to proceed with total knee arthroplasty. The patient is seen preoperatively by Dr. Ardon and medically cleared for surgery by their primary care physician. Patient is admitted to [facility] on 12/03/2023 for total knee arthroplasty. The procedure is performed without complication or sequelae. The patient is doing well postoperatively. Labs and vital signs are stable on day of discharge. On day of discharge patient's knee incision is healing well. There is minimal erythema. There is no drainage noted at this time. There is minimal soft tissue swelling to the knee. Patient has full foot and ankle motion without difficulty or pain. Calf is soft and nontender to palpation. Neurovascular status to the left lower extremity is intact. Patient is discharged home in good condition. Please see med rec for accurate list of home medications. Plan - Discharge Summary Discharge Rx Participant: Yes New Discharge Prescriptions: New Aspirin 325 mg PO BID #60 tab HYDROcodone/APAP 7.5-325MG [[place] 7.5-325] 1 - 2 tab PO Q6H PRN #32 tab PRN Reason: Pain Sennosides [Senokot] 2 tab PO DAILY PRN #60 tablet PRN Reason: Constipation No Action Vit C/E/Zn/Coppr/Lutein/Zeaxan [Preservision Areds 2 Softgel] 1 each PO DAILY Ibuprofen [Motrin Ib] 400 mg PO Q8H PRN PRN Reason: Pain Levothyroxine Sodium 125 mcg PO QAM amLODIPine [Norvasc] 10 mg PO QAM Aspirin 81 mg PO DAILY Benazepril HCl 40 mg PO QAM metFORMIN HCL [Glucophage] 500 mg PO QAM Multivit-Min/Iron/Folic/Lutein [Centrum Silver Women Tablet] 1 each PO DAILY Omeprazole 20 mg PO QAM Simvastatin 40 mg PO QAM Acetaminophen Tab [Tylenol] 650 mg PO Q4H PRN PRN Reason: Pain Magnesium 400 mg PO DAILY Discharge Medication List Acetaminophen Tab [Tylenol] 650 mg PO Q4H PRN 06/23/21 [History] Aspirin 81 mg PO DAILY 06/23/21 [History] Benazepril HCl 40 mg PO QAM 06/23/21 [History] Multivit-Min/Iron/Folic/Lutein [Centrum Silver Women Tablet] 1 each PO DAILY 06/23/21 [History] Omeprazole 20 mg PO QAM 06/23/21 [History] Simvastatin 40 mg PO QAM 06/23/21 [History] Vit C/E/Zn/Coppr/Lutein/Zeaxan [Preservision Areds 2 Softgel] 1 each PO DAILY 06/23/21 [History] amLODIPine [Norvasc] 10 mg PO QAM 06/23/21 [History] metFORMIN HCL [Glucophage] 500 mg PO QAM 06/23/21 [History] Ibuprofen [Motrin Ib] 400 mg PO Q8H PRN 09/26/23 [History] Levothyroxine Sodium 125 mcg PO QAM 09/26/23 [History] Magnesium 400 mg PO DAILY 09/26/23 [History] Aspirin 325 mg PO BID #60 tab 12/03/23 [Rx] HYDROcodone/APAP 7.5-325MG [[place] 7.5-325] 1 - 2 tab PO Q6H PRN #32 tab 12/03/23 [Rx] Sennosides [Senokot] 2 tab PO DAILY PRN #60 tablet 12/03/23 [Rx] Follow up Appointment(s)/Referral(s): [facility],Equipment [NON-STAFF] - As Needed (*Please call [facility] once home to arrange delivery of the Continuous Passive Motion (CPM) machine. ) Soniya Palm, GEOVANY [Family Provider] - 1 Week [facility], [NON-STAFF] - 1-2 Days ([facility] will call you to schedule your in home physical therapy visits. ) Vaughn Ardon DO [Doctor of Osteopathic Medicine] - 2 Weeks Patient Instructions/Handouts: *Surgery [facility] - On-Q Pain Pump Discharge Instructions, How to Use an Incentive Spirometer (DC), Joint Replacement Surgery (DC) Activity/Diet/Wound Care/Special Instructions: Weightbearing as tolerated with a walker. CPM 5-6h daily as tolerated. Leave dressing intact. Dressing may be removed by home care nurse or by patient in 7 days. Then change dressing twice daily until follow up. May shower with initial dressing intact and after removal. If dressing become saturated, please remove. Recommend use of compression stockings daily until follow up to help prevent swelling and blood clots. May remove at night before sleeping. Please take aspirin 325mg twice daily for 30 days to prevent blood clots. Please follow up with [facility] and call with any questions or concerns, . Discharge Disposition: HOME WITH HOME HEALTH SERVICES
[2023-12-04 11:09] LABS: Basophils # (A) 0.02 X 10*3/uL (0.00-0.10); Basophils % (A) 0.2 %; Eosinophils # (A) 0 X 10*3/uL (0.04-0.35); Eosinophils % (A) 0 %; HCT 38.4 % (37.2-46.3); HGB 12.4 g/dL (12.0-15.0); Lymphocytes # (A) 2.34 X 10*3/uL (0.90-5.00); Lymphocytes % (A) 22.7 %; MCH 28.8 pg (27.0-32.0); MCHC 32.3 g/dL (32.0-37.0); MCV 89.3 FL (80.0-97.0); Mean Platelet Volume 10.6 FL (9.5-12.2); Monocytes # (A) 1.04 X 10*3/uL (0.20-1.00); Monocytes % (A) 10.1 %; NRBC Per 100 WBC 0 X 10*3/uL (0.00-0.01); Neutrophils # (A) 6.84 X 10*3/uL (1.80-7.70); Neutrophils % (A) 66.4 %; Platelet Count 230 X 10*3/uL (140-440); RDW 14.9 % (11.5-14.5)
--- NOTE | 2023-12-04 11:34 | P.PN ---
Subjective Progress Note Date: 12/04/23 HPI Patient is a 73-year-old female with a past medical history of diabetes mellitus type 2, hyperlipidemia, hypothyroidism, hypertension, GERD who came in for elective left total knee replacement. Patient was seen after the surgery. She is currently complaining of 4 out of 10 pain. She otherwise has no acute complaints. Patient states that she had a recent stress test done that was normal. Review of systems: 10 ROS reviewed and are negative except as noted in HPI Physical exam General: [Alert and oriented, well nourished, no acute distress, appears chronically debilitated]. Eye: [PERRL, EOMI, normal conjunctiva]. HENT: [Normocephalic, clear tympanic membranes, normal hearing, moist oral muc milagros, no scleral icterus, no sinus tenderness]. Neck: [Supple, non-tender, no carotid bruits, no JVD, no lymphadenopathy]. Lungs: [Clear to auscultation and percussion, non-labored respiration]. Heart: [Normal rate, regular rhythm, no murmur, gallop or edema]. Abdomen: [Soft, non-tender, non-distended, normal bowel sounds, no masses] obese. Musculoskeletal: [Restricted range of motion of the left lower extremity, left lower extremity bandages intact and dry, no tenderness or swelling]. Skin: [Skin is warm, dry and pink, no rashes or lesions]. Neurologic: [Awake, alert, and oriented X3, CN II-XII intact]. Psychiatric: [Cooperative, appropriate mood and affect]. Assessment and plan Hypertension Restart home meds Diabetes mellitus Resume metformin on discharge Left TKA Patient started on aspirin 325 mg p.o. twice daily As per your orthopedic surgery management Hypothyroidism Resume levothyroxine GERD Resume PPI DVT prophylaxis: Patient on aspirin twice daily medical management postop postop medical management Patient stable for discharge from medical standpoint Objective - Vital Signs Vital signs: Vital Signs Temp 97.6 F 12/04/23 07:31 Pulse 95 12/04/23 07:31 Resp 19 12/04/23 07:31 BP 141/80 12/04/23 07:31 Pulse Ox 92 L 12/04/23 07:31 FiO2 Intake & Output 12/03/23 12/04/23 12/04/23 18:59 06:59 18:59 Intake Total 2021 540 Output Total 30 Balance 1990 540 Weight 98.6 kg Intake: IV 1551 Intake, IV Titration 470 Amount Sodium Chloride 0.9% 1, 420 000 ml @ 70 mls/hr IV . [id number] JANA Rx#:[id number] ceFAZolin 2 gm In Sodium 50 Chloride 0.9% 50 ml @ 100 mls/hr IVPB Q8H JANA Rx#: [id number] Oral 540 Output: Estimated Blood Loss 30 Other: Voiding Method Bedpan # Voids 1 1 - Labs CBC & Chem 7: 12/04/23 06:06 Labs: Abnormal Lab Results - Last 24 Hours (Table) 12/03/23 12/03/23 12/04/23 Range/Units 16:24 20:14 05:50 WBC (4.50-10.00) X 10*3/uL RDW (11.5-14.5) % Immature Gran # (0.00-0.04) X 10*3/uL Monocytes # (0.20-1.00) X 10*3/uL Eosinophils # (0.04-0.35) X 10*3/uL POC Glucose (mg/dL) 183 H 269 H 116 H (70-110) mg/dL 12/04/23 Range/Units 06:06 WBC 10.30 H (4.50-10.00) X 10*3/uL RDW 14.9 H (11.5-14.5) % Immature Gran # 0.06 H (0.00-0.04) X 10*3/uL Monocytes # 1.04 H (0.20-1.00) X 10*3/uL Eosinophils # 0 L (0.04-0.35) X 10*3/uL POC Glucose (mg/dL) (70-110) mg/dL
[2023-12-04 12:00] LABS: Glucose,Whole Blood 123 mg/dL (70-110)
[2023-12-04 14:08] VITALS: BP 138/78; PULSE 84; RESP 20; TEMP 98.6
== END 2023-12-04 14:49 | disposition home health service (06) ==
LOC: OR 06:51 → 4SSUR 10:56 → OR 12-04 14:49
PROVIDERS: ATTEND Orthopaedic Surgery
DX: M17.12 Unilateral primary osteoarthritis, left knee (principal); E03.9 Hypothyroidism, unspecified; E11.9 Type 2 diabetes mellitus without complications; E78.5 Hyperlipidemia, unspecified; I10 Essential (primary) hypertension; K21.9 Gastro-esophageal reflux disease without esophagitis; Z79.82 Long term (current) use of aspirin; Z79.84 Long term (current) use of oral hypoglycemic drugs; Z79.890 Hormone replacement therapy; Z88.6 Allergy status to analgesic agent; Z88.8 Allergy status to other drugs, medicaments and biological substances; Z79.899 Other long term (current) drug therapy
CPT/HCPCS: 97161; 64999; 64448; 85025; 73560; 27447; C1713; C1776; C1751; J2250; J1100; J2765; J0690 ×3; J2405; J1170; J2795